=== PATIENT | female | born 1940 | race Caucasian/White ===

== ENCOUNTER 2020-11-01 15:09 | Emergency (ER) | payer MEDICARE ==
[~2020-11-01] VITALS: Ht 165.1 cm; Wt 64.9 kg
[~2020-11-01 15:09] MED LIST: ASPIRIN325 MG PO; ATORVASTATIN CA10 MG PO; CALCIUM 500 +1 EAC1 PO; CITALOPRAM HBR40 MG PO; D3 PO; LORAZEPAM0.5 MG PO; MOVE FREE PO; MULTIVITAMIN PO; OMEPRAZOLE40 MG PO; RANITIDINE HCL150 MG PO; SERTRALINE HCL50 MG PO; TYLENOL WITH C1 EACH PO; VERAPAMIL HCL120 MG PO
[2020-11-01] MEDS ORDERED: ASPIRIN 81 MG CHEW TAB PO ONE (15:15)
[2020-11-01 15:40] LABS: BASOPHILS % 0.5 % (0.0-1.0); EOSINOPHILS % 0.5 % (0.0-6.0); HEMATOCRIT 37.7 % (34.2-44.1); HEMOGLOBIN 12.6 g/dL (12.0-16.0); LYMPHOCYTES # (AUTO) 1.6 (1.0-3.2); LYMPHOCYTES % 24.5 % (18.0-39.1); MEAN CORPUSCULAR HEMOGLOBIN 32.6 pg (28-32); MEAN CORPUSCULAR HGB CONC 33.4 g/dL (31-35); MEAN CORPUSCULAR VOLUME 97.4 fL (81-99); MONOCYTES # (AUTO) 0.5 (0.2-0.8); MONOCYTES % 7.2 % (4.4-11.3); NEUTROPHILS # (AUTO) 4.4 (2.1-6.9); PLATELET COUNT 199 x10e3/uL (140-360); RED BLOOD COUNT 3.87 x10e6/uL (3.6-5.1); RED CELL DISTRIBUTION WIDTH 13.2 % (11.7-14.4)
[2020-11-01] MEDS ORDERED: LORAZEPAM INJ 2 MG/ML VIAL IV STA (15:50)
[2020-11-01 16:03] LABS: ALANINE AMINOTRANSFERASE 11 IU/L (0-55); ALBUMIN 3.9 g/dL (3.5-5.0); ALBUMIN/GLOBULIN RATIO 1.3 (0.8-2.0); ALKALINE PHOSPHATASE 34 IU/L (40-150); ANION GAP 15.8 mmol/L (8-16); BLOOD UREA NITROGEN 15 mg/dL (7-26); BUN/CREATININE RATIO 18 (6-25); CALCIUM 9.6 mg/dL (8.4-10.2); CARBON DIOXIDE 22 mmol/L (22-29); CHLORIDE 105 mmol/L (98-107); CREATINE KINASE 56 IU/L (29-168); CREATININE, SERUM 0.82 mg/dL (0.57-1.11); EST GLOMERULAR FILTRATION RATE > 60 ML/MIN (60-); GLUCOSE 98 mg/dL (74-118); POTASSIUM 3.8 mmol/L (3.5-5.1); SODIUM 139 mmol/L (136-145)
[2020-11-01] MEDS ORDERED: IOPAMIDOL 370 MG/ML 200 ML INFUS..BTL INJ ONE (16:43)
[2020-11-01] MEDS ORDERED: SODIUM CHLORIDE 0.9% 50ML 50 ML ONE (16:43)
== END 2020-11-01 17:48 | disposition home or self-care (01) ==
LOC: ER 15:14
DX: F41.9 Anxiety disorder, unspecified (principal)
CPT/HCPCS: 36415; 71260; 80053; 82550; 82553; 83880; 84484; 85025; 85379; 93005; 99284; Q9967